=== PATIENT | female | born 1940 | race Hispanic/Latino ===

== ENCOUNTER 2018-05-22 21:36 | Emergency (ER) | payer MEDICARE, OTHER ==
[2018-05-22 21:47] VITALS: O2SAT 98
--- NOTE | 2018-05-22 22:56 | C.PDOC ---
History Of Present Illness 78 year old female presents to the ED for evaluation of right sided face contusion and deformity. Patient states she tripped over something at a [employer] and landed on the right side of her face. Patient denies LOC, nausea, vomit, dizziness, weakness, numbness. - HPI Time Seen by Provider: 05/22/18 22:00 Chief Complaint (Nursing): Trauma History Per: Patient History/Exam Limitations: no limitations Onset/Duration Of Symptoms: Hrs Injury Occurred (Timing): Just Before Arrival Location Of Injury: Right: Hand Recent travel outside of the [place]: No Additional History Per: Patient - Fall Fall:Prior To Injury: Tripped Past Medical History Reviewed: Historical Data, Nursing Documentation, Vital Signs Vital Signs: Last Vital Signs Temp Pulse 77 05/22/18 21:47 Resp 16 05/22/18 21:47 BP 167/70 H 05/22/18 21:47 Pulse Ox 98 05/22/18 21:47 - Medical History PMH: HTN Surgical History: No Surg Hx Family History: States: Unknown Family Hx - Social History Hx Alcohol Use: No Hx Substance Use: No - Immunization History Hx Tetanus Toxoid Vaccination: No Hx Influenza Vaccination: No Hx Pneumococcal Vaccination: No Review Of Systems Constitutional: Negative for: Fever, Chills Eyes: Positive for: Pain. Negative for: Vision Change ENT: Positive for: Nose Pain Cardiovascular: Negative for: Chest Pain, Palpitations Respiratory: Negative for: Cough, Shortness of Breath Gastrointestinal: Negative for: Nausea, Vomiting, Abdominal Pain Skin: Negative for: Rash Neurological: Positive for: Headache. Negative for: Weakness, Numbness, Dizziness Physical Exam - Physical Exam Appears: Non-toxic, No Acute Distress Skin: Normal Color, Warm, Dry Head: Normacephalic, Other (questionable skin tear iver right eye lid) Eye(s): bilateral: Normal Inspection, right: Other (swollen shut) Nose: No Epistaxis, Deformity, No Septal Hematoma, Other (swelling and ecchymosis) Oral Mucosa: Moist Neck: Normal ROM, No Midline Cervical Tenderness, Supple Chest: Symmetrical Cardiovascular: Rhythm Regular Respiratory: Normal Breath Sounds, No Rales, No Rhonchi, No Wheezing Gastrointestinal/Abdominal: Soft, No Tenderness, No Guarding, No Rebound Extremity: Normal ROM, No Tenderness, No Swelling Neurological/Psych: Oriented x3, Normal Speech, Normal Cognition Gait: Steady ED Course And Treatment O2 Sat by Pulse Oximetry: 98 (ON RA) Pulse Ox Interpretation: Normal - CT Scan/US CT head Other Rad Studies (CT/US): Read By Radiologist, Radiology Report Reviewed CT/US Interpretation: EXAM: CT Head without Intravenous Contrast. CLINICAL HISTORY: PATIENT FEEL AFTER MISSING STEP GOING INTO STORE RT ORBITAL DISCOLORATION AND SWELING NO LOC. TECHNIQUE: Axial computed tomography images of the head/brain without intravenous contrast. 0.00 mGy-cm. COMPARISON: None provided. FINDINGS: BRAIN. No evidence for acute intracranial hemorrhage. VENTRICLES: There is mild prominence of ventricles and sulci compatible with mild, age appropriate atrophy. ORBITS: The orbits are unremarkable. SINUSES AND MASTOIDS: The paranasal sinuses and mastoid air cells are clear. BONES: There are slightly comminuted, minimally displaced nasal fractures. No displaced calvarial fractures. SOFT TISSUES: There is extracranial soft tissue swelling at the right maxillary, right periorbital and right supra-orbital region. The right globe appears intact. Retrobulbar structures appear intact. MISCELLANEOUS: There is arthritic changes the right temporomandibular joint. No evidence for acute territorial infarction. No extra-axial collections are identified. IMPRESSION: 1. There is extracranial soft tissue swelling at the right maxillary, right periorbital and right supra-orbital region. The right globe appears intact. Retrobulbar structures appear intact. 2. There are slightly comminuted, minimally displaced nasal fractures. 3. There is arthritic changes the right temporomandibular joint. 4. There is mild prominence of ventricles and sulci compatible with mild, age appropriate atrophy. 5. No CT evidence for acute intracranial abnormality. . Electronically signed on May 23, 2018 12:27:58 AM EST by: Edie Mason M.D., Certified by ABR, MSK, Neuroradiology CT maxillofacial Other Rad Studies (CT/US): Read By Radiologist, Radiology Report Reviewed CT/US Interpretation: EXAM: CT Maxillofacial without Intravenous Contrast. CLINICAL HISTORY: S/P FALL INJURY TO RT FRONTAL REGION AND ORBITAL REGION RT EYE SWOLLEN SHUT AND DISCOLORED. ZYGOMA. TECHNIQUE: Axial computed tomography images of the face without intravenous contrast. Sagittal and coronal reformatted images were generated. 0.00 mGy-cm. CONTRAST: Without. COMPARISON: None provided. FINDINGS: BONES: There are minimally displaced and slightly comminuted nasal fractures. The bony orbits appear intact. No other acute facial fractures are identified. SOFT TISSUES: There is extracranial soft tissue swelling and hematoma at the right maxillary, right periorbital and right supra-orbital region. SINUSES: The paranasal sinuses appear normally aerated. ORBITS: The orbits are normal. No retrobulbar hematoma or mass. MISCELLANEOUS: The right globe appears intact. The right retrobulbar structures appear intact. There is arthritic change of the right greater than left temporomandibular joints. IMPRESSION: 1. There are minimally displaced and slightly comminuted nasal fractures. 2. There is extracranial soft tissue swelling and hematoma at the right maxillary, right periorbital and right supra-orbital region. 3. The right globe appears intact. The right retrobulbar structures appear intact. The bony orbits appear intact. 4. No other acute facial fractures are identified. . Electronically signed on May 23, 2018 12:28:09 AM EST by: Edie Mason M.D., Certified by ABR, MSK, Neuroradiology Reevaluation Time: 00:39 Reassessment Condition: Improved Medical Decision Making Medical Decision Making: Plan: * CT head * CT maxillofacial * superficial R eyelid lac/tear (cannot repair) + mild nasal fx's no brain injury Disposition Doctor Will See Patient In The: Office Counseled Patient/Family Regarding: Studies Performed, Diagnosis - Disposition Disposition: HOME/ ROUTINE Disposition Time: 00:40 Condition: GOOD Forms: [facility] (Guyanese) - Clinical Impression Clinical Impression: Fracture of face bones due to fall - Scribe Statement The provider has reviewed the documentation as recorded by the Scribe Lamine Armstrong All medical record entries made by the Scribe were at my direction and personally dictated by me. I have reviewed the chart and agree that the record accurately reflects my personal performance of the history, physical exam, medical decision making, and the department course for this patient. I have also personally directed, reviewed, and agree with the discharge instructions and disposition.
[2018-05-23] MEDS ORDERED: Bacitracin 500 Units/gm Oint Foilpak UD ONE (00:28)
[2018-05-23 01:33] VITALS: BP 148/75; PULSE 65; RESP 20; TEMP 97.9
--- NOTE | 2018-05-23 09:11 | CT ---
Date of service: 05/22/2018 PROCEDURE: CT HEAD WITHOUT CONTRAST. HISTORY: fall from standing, R forehead COMPARISON: None available. TECHNIQUE: Axial computed tomography images were obtained through the head/brain without intravenous contrast. Radiation dose: Total exam DLP = 1068.99 mGy-cm. This CT exam was performed using one or more of the following dose reduction techniques: Automated exposure control, adjustment of the mA and/or kV according to patient size, and/or use of iterative reconstruction technique. FINDINGS: HEMORRHAGE: No intracranial hemorrhage. BRAIN: No mass effect or edema. No atrophy or chronic microvascular ischemic changes. VENTRICLES: Unremarkable. No hydrocephalus. CALVARIUM: Unremarkable. PARANASAL SINUSES: Unremarkable as visualized. No significant inflammatory changes. MASTOID AIR CELLS: Unremarkable as visualized. No inflammatory changes. OTHER FINDINGS: Mildly displaced nasal bone fractures noted. IMPRESSION: No evidence of acute intracranial hemorrhage intracranial collection mass effect or midline shift. Mildly displaced nasal bone fractures. Preliminary report contains concordant findings was submitted by [facility].
--- NOTE | 2018-05-23 12:04 | CT ---
Date of service: 05/22/2018 PROCEDURE: CT MAXILLOFACIAL BONES WITHOUT CONTRAST HISTORY: fall from standing, R eye/nose COMPARISON: None available. TECHNIQUE: Contiguous axial CT images of the maxillofacial bones were obtained. Coronal and sagittal reformats were generated. 3D reformatted images of the maxillofacial bones were also obtained. Radiation dose: Total exam DLP = 730.0 mGy-cm. This CT exam was performed using one or more of the following dose reduction techniques: Automated exposure control, adjustment of the mA and/or kV according to patient size, and/or use of iterative reconstruction technique. FINDINGS: NASAL BONES: Mildly displaced nasal bone fractures noted PE. ORBITS: Right periorbital soft tissue swelling. No evidence of acute displaced fracture PARANASAL SINUSES/ MASTOIDS: Mild mucosal thickening of the ethmoid sinuses noted. MAXILLA: Unremarkable. MANDIBLE/ TEMPOROMANDIBULAR JOINTS: Unremarkable. SKULL BASE: Unremarkable. TEMPORAL BONES: Middle ears and mastoid grossly unremarkable. OTHER FINDINGS: Soft tissue swelling at the right facial region right periorbital and right maxillary region noted extending to the right frontal area. IMPRESSION: Mildly displaced nasal bone fractures. Soft tissue swelling and small hematoma in the right maxillary right periorbital and right supraorbital region. Preliminary report was submitted by [facility] contains concordant findings.
== END 2018-05-23 01:00 | disposition home or self-care (01) ==
LOC: C.ER 21:36
DX: S02.2XXA Fracture of nasal bones, initial encounter for closed fracture (principal); W01.0XXA Fall on same level from slipping, tripping and stumbling without subsequent striking against object, initial encounter; Y92.512 Supermarket, store or market as the place of occurrence of the external cause